=== PATIENT | male | born 1980 | race Caucasian/White ===

== ENCOUNTER 2020-07-20 03:02 | Emergency (ER) | payer OTHER ==
[~2020-07-20] VITALS: Ht 177.8 cm; Wt 89.4 kg
[2020-07-20] MEDS ORDERED: PROAIR HFA8.5 GM INH (04:06)
[2020-07-20] MEDS ORDERED: PREDNISONE 20 M20 MG PO (04:06)
[2020-07-20 04:11] VITALS: BP 155/92
== END 2020-07-20 04:21 | disposition home or self-care (01) ==
LOC: ER 03:02
DX: J45.901 Unspecified asthma with (acute) exacerbation (principal)

== ENCOUNTER 2020-08-10 21:03 | Emergency (ER) | payer OTHER ==
[~2020-08-10] VITALS: Ht 177.8 cm; Wt 117.9 kg
[~2020-08-10 21:03] MED LIST: PREDNISONE 20 M20 MG PO; PROAIR HFA8.5 GM INH
[2020-08-10] MEDS ORDERED: VENTOLIN HFA 1818 GM INH (21:30)
[2020-08-10] MEDS ORDERED: PREDNISONE 20 M20 MG PO (21:30)
[2020-08-10 22:26] VITALS: BP 137/85
== END 2020-08-10 22:27 | disposition home or self-care (01) ==
LOC: ER 21:03
DX: J45.901 Unspecified asthma with (acute) exacerbation (principal); Z79.899 Other long term (current) drug therapy

== ENCOUNTER 2020-10-16 21:26 | Emergency (ER) | payer OTHER ==
[~2020-10-16] VITALS: Ht 177.8 cm; Wt 95.3 kg
[~2020-10-16 21:26] MED LIST changes: +VENTOLIN HFA 1818 GM INH
[2020-10-16] MEDS ORDERED: PREDNISONE50 MG PO (22:52)
[2020-10-16] MEDS ORDERED: ALBUTEROL2.5 MG/31 INH (22:52)
[2020-10-16 23:10] VITALS: BP 161/85
== END 2020-10-16 23:20 | disposition home or self-care (01) ==
LOC: ER 21:26
DX: J45.901 Unspecified asthma with (acute) exacerbation (principal); Z79.899 Other long term (current) drug therapy; Z20.828 Contact with and (suspected) exposure to other viral communicable diseases